=== PATIENT | female | born 1980 | race African-American/Black ===

== ENCOUNTER 2019-08-28 17:30 | Emergency (ER) | payer MEDICAID ==
[~2019-08-28] VITALS: Ht 170.2 cm; Wt 70.0 kg
[2019-08-28] MEDS ORDERED: IBUPROFEN 600MG TABLET PO ONE (20:15)
[2019-08-28] MEDS ORDERED: AMOXICILLIN/POTASSIUM CLAVULANATE 875/125MG TAB PO ONE (20:15)
[2019-08-28] MEDS ORDERED: HYDROCODONE/ACETAMINOPHEN 5/325MG TABLET PO ONE (20:15)
[2019-08-28 22:15] VITALS: BP 126/79
== END 2019-08-28 22:43 | disposition home or self-care (01) ==
LOC: ER 17:30
DX: K01.1 Impacted teeth (principal); K02.9 Dental caries, unspecified; R68.84 Jaw pain; K05.10 Chronic gingivitis, plaque induced
CPT/HCPCS: 99284

== ENCOUNTER 2019-09-01 16:20 | Emergency (ER) | payer MEDICAID ==
[~2019-09-01] VITALS: Ht 170.2 cm; Wt 70.0 kg
[2019-09-01] MEDS ORDERED: IBUPROFEN 600MG TABLET PO STA (21:05)
[2019-09-01 23:37] LABS: BASOPHILS % 0.3 % (0.0-2.0); HEMATOCRIT. 39.1 % (36.0-48.0); HEMOGLOBIN. 12.4 g/dL (12.0-16.0); LYMPHOCYTES % 17.4 % (20.0-50.0); MEAN CORPUSCULAR HEMOGLOBIN 24.4 pg (28.0-32.0); MEAN CORPUSCULAR VOLUME 76.8 fL (81.0-99.0); MEAN PLATELET VOLUME 8.5 fl (7.4-10.4); MONOCYTES % 11.2 % (2.0-8.0); NEUTROPHILS % 70.1 % (40.0-76.0); PLATELET 221 x1000/uL (130-400); RED CELL DISTRIBUTION WIDTH 16.9 % (11.6-14.6)
[2019-09-01 23:45] LABS: CHLORIDE 105 mEq/L (98-107)
[2019-09-02 14:25] VITALS: BP 103/70
== END 2019-09-02 14:28 | disposition home or self-care (01) ==
LOC: ER 16:20
DX: L03.116 Cellulitis of left lower limb (principal); L03.115 Cellulitis of right lower limb; Z59.0 Homelessness
CPT/HCPCS: 36415; 71045; 80053; 85025; 93970; 99284

== ENCOUNTER 2023-04-01 11:56 | Emergency (ER) | payer MEDICAID, OTHER ==
[~2023-04-01] VITALS: Ht 167.6 cm; Wt 63.0 kg
[2023-04-01 12:13] VITALS: O2SAT 100
[2023-04-01 12:36] LABS: BASOPHILS % 0.6 % (0.0-2.0); EOSINOPHILS % 0.2 % (0.0-5.0); HEMATOCRIT. 42.4 % (36.0-48.0); HEMOGLOBIN. 13.6 g/dL (12.0-16.0); LYMPHOCYTES % 23.7 % (20.0-50.0); MEAN CORPUSCULAR HEMOGLOBIN 23.9 pg (28.0-32.0); MEAN CORPUSCULAR VOLUME 74.8 fL (81.0-99.0); MONOCYTES % 10.2 % (2.0-8.0); NEUTROPHILS % 65.3 % (40.0-76.0); RED BLOOD CELL COUNT 5.67 mill/uL (4.2-5.4); RED CELL DISTRIBUTION WIDTH 20.1 % (11.6-14.6); WHITE BLOOD COUNT 9.7 x1000/uL (4.5-11.0)
[2023-04-01 12:49] LABS: DIFFERENTIAL COMMENT 1
[2023-04-01 13:24] LABS: MEAN PLATELET VOLUME 9.3 fl (7.4-10.4); PLATELET 193 x1000/uL (130-400)
[2023-04-01] MEDS ORDERED: DICYCLOMINE HCL 20MG TABLET PO SCH (15:00)
[2023-04-01] MEDS ORDERED: ONDANSETRON 4MG ODT PO ONE (15:00)
[2023-04-01 15:45] LABS: CLARITY URINE CLOUDY (CLEAR); COLOR URINE DARK YELLOW (YELLOW); GLUCOSE URINE NEGATIVE (NEGATIVE); KETONES URINE 2+ (NEGATIVE); LEUKOCYTE ESTERASE URINE NEGATIVE (NEGATIVE); NITRITE URINE NEGATIVE (NEGATIVE); OCCULT BLOOD URINE NEGATIVE (NEGATIVE); PH URINE 5.5 (4.5-8.0); PROTEIN URINE 3+ (NEGATIVE); SPECIFIC GRAVITY URINE 1.031 (1.005-1.030)
[2023-04-01 15:48] LABS: RBC URINE 0-2 /hpf (0-2); YEAST URINE NONE SEEN
[2023-04-01 16:00] LABS: HCG SCREEN NEGATIVE
[2023-04-01 16:26] LABS: CHLORIDE 100 mEq/L (98-107); INDEX HEMOLYSI 5 (1-3); INDEX ICTERIC 1 (1-4); INDEX LIPEMIC 1 (1-3); SODIUM 134 mEq/L (136-145)
[2023-04-01 16:28] LABS: POTASSIUM 5.1 mEq/L (3.5-5.1)
[2023-04-01 16:34] LABS: ALANINE AMINOTRANSFERASE 23 IU/L (13-61); ALBUMIN 4.5 g/dL (3.4-5.0); ASPARTATE AMINOTRANSFERASE 42 IU/L (15-37); CALCIUM 9.1 mg/dL (8.5-10.1); CARBON DIOXIDE 26 mEq/L (21-32); CREATININE 0.9 mg/dL (0.6-1.3); GLUCOSE 86 mg/dL (70-105); UREA NITROGEN BLOOD 22 mg/dL (7-21)
[2023-04-01 16:40] LABS: BACTERIA URINE 3+; SQUAMOUS EPITHELIAL CELL URINE 2+ /lpf (RARE/1+); WBC URINE 0-2 /hpf (0-2)
[2023-04-01] MEDS ORDERED: DICY20TA2 MT (17:13)
[2023-04-01] MEDS ORDERED: ONDA4TAB11 PO (17:13)
[2023-04-01 17:31] VITALS: BP 137/74; PULSE 77; RESP 20; TEMP 98.8
== END 2023-04-01 17:31 | disposition home or self-care (01) ==
LOC: ER 11:56
DX: R19.7 Diarrhea, unspecified (principal)
CPT/HCPCS: 99283; 80053; 81003; 84703; 85025; 36415; Q0162

== ENCOUNTER 2023-04-04 09:02 | Emergency (ER) | payer OTHER ==
[~2023-04-04] VITALS: Ht 160 cm; Wt 55.0 kg
[~2023-04-04 09:02] MED LIST: DICY20TA2 MT; ONDA4TAB11 PO
[2023-04-04 09:05] VITALS: TEMP 97.4; O2SAT 100
[2023-04-04] MEDS ORDERED: ONDANSETRON HCL 4MG/2ML INJ IV STA (09:09)
[2023-04-04] MEDS ORDERED: KETOROLAC 30MG/ML VIAL IV STA (09:09)
[2023-04-04] MEDS ORDERED: SODIUM CHLORIDE 0.9% 1,000 ML IV ONE (09:15)
[2023-04-04 09:47] LABS: BASOPHILS % 0.5 % (0.0-2.0); DIFFERENTIAL COMMENT 0; EOSINOPHILS % 0.2 % (0.0-5.0); HEMATOCRIT. 42.2 % (36.0-48.0); HEMOGLOBIN. 13.4 g/dL (12.0-16.0); LYMPHOCYTES % 23.3 % (20.0-50.0); MEAN CORPUSCULAR HGB CONC 31.7 g/dL (31.0-37.0); MEAN CORPUSCULAR VOLUME 75.5 fL (81.0-99.0); MEAN PLATELET VOLUME 9.8 fl (7.4-10.4); MONOCYTES % 11.5 % (2.0-8.0); NEUTROPHILS % 64.5 % (40.0-76.0); PLATELET 154 x1000/uL (130-400); RED BLOOD CELL COUNT 5.58 mill/uL (4.2-5.4); RED CELL DISTRIBUTION WIDTH 19.4 % (11.6-14.6); WHITE BLOOD COUNT 7.6 x1000/uL (4.5-11.0)
[2023-04-04 09:55] LABS: HCG SCREEN NEGATIVE
[2023-04-04 10:00] LABS: INR 1.1; PROTHROMBIN TIME 11.4 sec (9.6-11.0)
[2023-04-04 10:04] LABS: CHLORIDE 98 mEq/L (98-107); INDEX HEMOLYSI 1 (1-3); INDEX ICTERIC 1 (1-4); INDEX LIPEMIC 1 (1-3); POTASSIUM 3.1 mEq/L (3.5-5.1); SODIUM 135 mEq/L (136-145)
[2023-04-04 10:15] LABS: ALANINE AMINOTRANSFERASE 23 IU/L (13-61); ASPARTATE AMINOTRANSFERASE 21 IU/L (15-37); BILIRUBIN TOTAL 0.8 mg/dL (0.1-1.0); CALCIUM 9.4 mg/dL (8.5-10.1); CARBON DIOXIDE 22 mEq/L (21-32); CREATININE 0.7 mg/dL (0.6-1.3); ETHANOL BLOOD < 10 mg/dL (-10); GLUCOSE 87 mg/dL (70-105); PROTEIN TOTAL 8.3 g/dL (6.0-8.3); TROPONIN I HIGH SENSITIVITY 20 ng/L (<54); UREA NITROGEN BLOOD 16 mg/dL (7-21)
[2023-04-04] MEDS ORDERED: POTASSIUM CHLORIDE 20MEQ TABLET SR PO ONE (11:15)
[2023-04-04] MEDS ORDERED: POTASSIUM CHLORIDE 20MEQ TABLET SR PO NR (11:15)
[2023-04-04 15:03] VITALS: BP 122/85; PULSE 75; RESP 15
== END 2023-04-04 17:13 ==
LOC: ER 09:24 → CANBEDREQ 14:16 → ER 17:13
DX: R11.2 Nausea with vomiting, unspecified (principal); E87.6 Hypokalemia; I10 Essential (primary) hypertension
CPT/HCPCS: 80053; 80320; 84703; 83690; 85025; 85610; 84484; 36415; 74176; 93005; 99284; J7030; G0480